=== PATIENT | male | born 1965 | race Caucasian/White ===

== ENCOUNTER 2020-06-27 15:25 | Inpatient (IN) | payer OTHER ==
[2020-06-27 16:41] VITALS: BMI 40.8
[2020-06-27] MEDS ORDERED: METHOCARBAMOL 500 MG TABLET PO PRN (17:18)
[2020-06-27] MEDS ORDERED: IBUPROFEN 400 MG TABLET (FP) PO PRN (17:18)
[2020-06-27] MEDS ORDERED: MAGNESIUM CITRATE 300 ML BOTTLE PO PRN (17:18)
[2020-06-27] MEDS ORDERED: chlordiazePOXIDE HCL 25 MG CAPSULE PO PRN (17:18)
[2020-06-27] MEDS ORDERED: BISMUTH SUBSALICYLATE 524 MG/30 ML UD PO PRN (17:18)
[2020-06-27] MEDS ORDERED: ONDANSETRON *ODT* 4 MG TABLET SL PRN (17:18)
[2020-06-27] MEDS ORDERED: ACETAMINOPHEN 325 MG TABLET (FP) PO PRN ×2 (17:18)
[2020-06-27] MEDS ORDERED: NICOTINE POLACRILEX 2 MG GUM BUC PRN (17:18)
[2020-06-27] MEDS ORDERED: MAG HYDROX/AL HYDROX/SIMETH 30 ML UNIT-DOSE CUP PO PRN (17:18)
[2020-06-27] MEDS ORDERED: MAGNESIUM HYDROX 2400MG/30ML ORAL SUSPENSION 30 ML CUP PO PRN (17:18)
[2020-06-27] MEDS ORDERED: MENTHOL/PHENOL 1 EACH UD MM PRN (17:18)
[2020-06-27] MEDS ORDERED: chlordiazePOXIDE HCL 25 MG CAPSULE PO ONE (17:18)
[2020-06-27] MEDS: THIAMINE HCL 100 MG TABLET (FP) PO SCH (22:39)
[2020-06-27] MEDS: MELATONIN 5 MG TABLETS PO PRN (22:39)
[2020-06-27] MEDS: chlordiazePOXIDE HCL 25 MG CAPSULE PO SCH (22:39)
[2020-06-28] MEDS: chlordiazePOXIDE HCL 25 MG CAPSULE PO SCH ×4 (06:38→22:24)
[2020-06-28] MEDS ORDERED: PRENATAL VITAMINS W/ FOLIC ACID TABLET (FP) PO SCH (10:00)
[2020-06-28 10:31] LABS: POTASSIUM 3.9 mmol/L (3.5-5.1)
[2020-06-28 10:40] LABS: BLOOD UREA NITROGEN 12.4 mg/dL (7-18)
[2020-06-28 10:41] LABS: CALCIUM 9.1 mg/dL (8.5-10.1)
[2020-06-28 10:45] LABS: BILIRUBIN,TOTAL 1.8 mg/dL (0.2-1); TOT PROT 7.2 g/dl (6.4-8.2)
[2020-06-28 11:31] LABS: HEMATOCRIT 44.9 % (35.4-49); HEMOGLOBIN 15.5 GM/dL (11.7-16.9); MCH 34.3 pg (25.7-33.7); MCHC 34.5 g/dl (32.0-35.9); MEAN CELL VOLUME 99.4 fl (80-96); MEAN PLT VOLUME 9.2 fl (7.5-11.1); PLATELET COUNT 95 K/MM3 (134-434); RBC 4.52 M/mm3 (4.00-5.60); RDW 14.8 % (11.9-15.9); WHITE BLOOD COUNT 4.8 K/mm3 (4.0-10.0)
[2020-06-28] MEDS: THIAMINE HCL 100 MG TABLET (FP) PO SCH (22:24)
[2020-06-28] MEDS: MELATONIN 5 MG TABLETS PO PRN (22:24)
[2020-06-29] MEDS ORDERED: chlordiazePOXIDE HCL 25 MG CAPSULE PO SCH (05:00)
[2020-06-29 10:10] VITALS: BP 125/85; PULSE 103; TEMP 97.3
[2020-06-30] MEDS ORDERED: chlordiazePOXIDE HCL 10 MG CAPSULE PO PRN
[2020-06-30] MEDS ORDERED: chlordiazePOXIDE HCL 10 MG CAPSULE PO SCH (05:00)
[2020-07-01] MEDS ORDERED: chlordiazePOXIDE HCL 10 MG CAPSULE PO SCH (05:00)
[2020-07-02] MEDS ORDERED: chlordiazePOXIDE HCL 10 MG CAPSULE PO ONE (05:00)
== END 2020-06-29 10:05 | disposition left against medical advice (07) | DRG 894 ==
LOC: YASAS 15:25 → Y6N 17:45
PROVIDERS: ADMIT Allergy & Immunology; ATTEND Allergy & Immunology
PROC: HZ2ZZZZ Detoxification Services for Substance Abuse Treatment (ICD-10-PCS; principal; 2020-06-27)
DX: F10.230 Alcohol dependence with withdrawal, uncomplicated (principal); Z68.41 Body mass index [BMI] 40.0-44.9, adult; F19.24 Other psychoactive substance dependence with psychoactive substance-induced mood disorder; F32.9 Major depressive disorder, single episode, unspecified; F41.9 Anxiety disorder, unspecified; E66.01 Morbid (severe) obesity due to excess calories; I10 Essential (primary) hypertension; R94.31 Abnormal electrocardiogram [ECG] [EKG]
CPT/HCPCS: 36415; 80053; 85027; 86780; 93005; 93010; C9803; U0003

== ENCOUNTER 2020-11-10 20:51 | Inpatient (IN) | payer BC, OTHER ==
[2020-11-10 21:00] VITALS: BMI 40.8
[2020-11-10] MEDS ORDERED: diazePAM CARPU-JECT 10 MG/2 ML DISP.SYRIN IVPUSH ONE ×3 (22:11→23:29)
[2020-11-10] MEDS ORDERED: SODIUM CHLORIDE 0.9% 500 ML INFUS.BAG IV ONE (22:12)
[2020-11-10] MEDS ORDERED: diazePAM CARPU-JECT 10 MG/2 ML DISP.SYRIN ONE ×3 (22:24→23:49)
[2020-11-10 22:33] LABS: BASO % 1.3 % (0-2.0); EOS % 1.5 % (0-4.5); HEMATOCRIT 47.5 % (35.4-49); HEMOGLOBIN 16.4 GM/dL (11.7-16.9); LYMPH % 38.3 % (8-40); MCHC 34.6 g/dl (32.0-35.9); MEAN CELL VOLUME 98.3 fl (80-96); MEAN PLT VOLUME 8.3 fl (7.5-11.1); MONO % 9.4 % (3.8-10.2); NEUT % 49.5 % (42.8-82.8); PLATELET COUNT 108 10^3/uL (134-434); RBC 4.83 M/mm3 (4.00-5.60); RDW 14.8 % (11.9-15.9); WHITE BLOOD COUNT 5.2 K/mm3 (4.0-10.0)
[2020-11-10 22:37] LABS: INR 0.88 (0.83-1.09); PROTHROMBIN TIME (PATIENT) 10.7 SEC (9.7-13.0)
[2020-11-10 22:39] LABS: ACTIVATED PTT 33.6 SECONDS (25.2-36.5)
[2020-11-10 22:50] LABS: CHLORIDE 107 mmol/L (98-107); SODIUM 141 mmol/L (136-145)
[2020-11-10 22:54] LABS: CALCIUM 9.5 mg/dL (8.5-10.1)
[2020-11-10 22:55] LABS: ALBUMIN 4.2 g/dl (3.4-5.0); ANION GAP 11 MMOL/L (8-16); BLOOD UREA NITROGEN 10.4 mg/dL (7-18); CO2 22 mmol/L (21-32); GLUCOSE,RANDOM 140 mg/dL (74-106)
[2020-11-10 22:58] LABS: CREATININE 0.7 mg/dL (0.55-1.3); SGOT/AST 84 U/L (15-37); SGPT/ALT 77 U/L (13-61)
[2020-11-10 23:00] LABS: ALK PHOS 65 U/L (45-117); BILIRUBIN,TOTAL 0.5 mg/dL (0.2-1); TOT PROT 7.7 g/dl (6.4-8.2)
[2020-11-10] MEDS ORDERED: dilTIAZem HCL 50 MG/10 ML - 10 ML VIAL IVPUSH ONE (23:05)
[2020-11-10] MEDS ORDERED: dilTIAZem HCL 125 MG/25 ML - 25 ML VIAL ONE (23:09)
[2020-11-10] MEDS ORDERED: dilTIAZem HCL 60 MG TABLET ONE (23:34)
[2020-11-11] MEDS ORDERED: diazePAM CARPU-JECT 10 MG/2 ML DISP.SYRIN IVPUSH ONE (02:01)
[2020-11-11] MEDS ORDERED: dilTIAZem HCL 50 MG/10 ML - 10 ML VIAL IVPUSH ONE (02:01)
[2020-11-11] MEDS ORDERED: dilTIAZem HCL 125 MG/25 ML - 25 ML VIAL ONE (02:04)
[2020-11-11] MEDS ORDERED: diazePAM CARPU-JECT 10 MG/2 ML DISP.SYRIN ONE (02:04)
[2020-11-11 03:09] LABS: URINE AMPHETAMINES NEGATIVE (NEGATIVE); URINE BARBITURATES NEGATIVE (NEGATIVE)
[2020-11-11 03:10] LABS: COCAINE, UR NEGATIVE (NEGATIVE); METHADONE, UR NEGATIVE (NEGATIVE); OPIATES, URI NEGATIVE (NEGATIVE); PHENCYCLIDINE,URINE NEGATIVE (NEGATIVE); URINE BENZODIAZEPINES NEGATIVE (NEGATIVE)
[2020-11-11] MEDS ORDERED: chlordiazePOXIDE HCL 10 MG CAPSULE ONE (03:19)
[2020-11-11] MEDS ORDERED: chlordiazePOXIDE HCL 25 MG CAPSULE PO ONE (03:19)
[2020-11-11] MEDS ORDERED: FOLIC ACID INJECTION - 1 MG, THIAMINE HCL 100 MG, MULTIVIT INJECTION ADULT 10 ML in SOD... IVPB ONE (03:27)
[2020-11-11] MEDS ORDERED: LORazepam 1 MG TABLET PO PRN (03:37)
[2020-11-11 03:46] LABS: BASO % 0.9 % (0-2.0); EOS % 1.2 % (0-4.5); HEMATOCRIT 46.1 % (35.4-49); HEMOGLOBIN 16.2 GM/dL (11.7-16.9); LYMPH % 28.8 % (8-40); MCH 34.1 pg (25.7-33.7); MCHC 35.2 g/dl (32.0-35.9); MEAN CELL VOLUME 96.9 fl (80-96); MEAN PLT VOLUME 8.3 fl (7.5-11.1); MONO % 8.3 % (3.8-10.2); NEUT % 60.8 % (42.8-82.8); PLATELET COUNT 105 10^3/uL (134-434); RBC 4.76 M/mm3 (4.00-5.60); RDW 15.1 % (11.9-15.9); WHITE BLOOD COUNT 6.1 K/mm3 (4.0-10.0)
[2020-11-11 04:07] LABS: ALBUMIN 4.1 g/dl (3.4-5.0); BLOOD UREA NITROGEN 9.9 mg/dL (7-18); CALCIUM 9.3 mg/dL (8.5-10.1); MAGNESIUM 1.8 mg/dL (1.8-2.4)
[2020-11-11 04:11] LABS: CREATININE 0.7 mg/dL (0.55-1.3)
[2020-11-11 04:12] LABS: PHOSPHOROUS 3.2 mg/dL (2.5-4.9)
[2020-11-11 04:13] LABS: BILIRUBIN,TOTAL 0.7 mg/dL (0.2-1); TOT PROT 7.4 g/dl (6.4-8.2)
[2020-11-11 04:52] LABS: PH,URINE 6.5 (5.0-8.0); URINE APPEARANCE Clear; URINE BILIRUBIN Negative (NEGATIVE); URINE COLOR Yellow; URINE GLUCOSE (UA) Negative (NEGATIVE); URINE KETONE Negative (NEGATIVE); URINE LEUK ESTERASE Negative (NEGATIVE); URINE NITRITE Negative (NEGATIVE); URINE PROTEIN 2+ (NEGATIVE); URINE UROBILINOGEN 0.2 mg/dL (0.2-1.0)
[2020-11-11] MEDS ORDERED: LORazepam 1 MG TABLET ONE ×3 (05:04→11:20)
[2020-11-11] MEDS: LORazepam 2 MG TABLET PO SCH ×3 (05:07→17:24)
[2020-11-11 05:26] LABS: EPI CELLS MODERATE /uL (0-25.1); URINE WBC 75-100 /uL (0-25.8)
[2020-11-11 05:27] LABS: YEAST 2+ (NEGATIVE)
[2020-11-11] MEDS ORDERED: dilTIAZem HCL 30 MG TABLET ONE (06:16)
[2020-11-11] MEDS: dilTIAZem HCL 30 MG TABLET PO SCH ×3 (06:18→17:20)
[2020-11-11 07:09] LABS: HIV INTERPRETATION NEGATIVE (NEGATIVE)
[2020-11-11 08:00] LABS: N-TERMINAL BNP 137.5 pg/ml (5-125)
[2020-11-11] MEDS ORDERED: ENOXAPARIN NA (PORCINE) 40 MG/0.4 ML DISP.SYRIN SQ SCH (10:00)
[2020-11-11] MEDS ORDERED: FOLIC ACID 1 MG TABLET (FP) ONE (10:21)
[2020-11-11] MEDS ORDERED: THIAMINE HCL 100 MG TABLET (FP) ONE (10:21)
[2020-11-11] MEDS ORDERED: MULTIVITAMINS (DAILY MVI) TABLET (FP) ONE (10:21)
[2020-11-11] MEDS ORDERED: PANTOPRAZOLE 40 MG TABLET ONE (10:21)
[2020-11-11] MEDS ORDERED: ENOXAPARIN NA (PORCINE) 40 MG/0.4 ML DISP.SYRIN SQ ONE ×2 (10:22→20:14)
[2020-11-11] MEDS: FOLIC ACID 1 MG TABLET (FP) PO SCH (10:30)
[2020-11-11] MEDS: MULTIVITAMINS (DAILY MVI) TABLET (FP) PO SCH (10:31)
[2020-11-11] MEDS: THIAMINE HCL 100 MG TABLET (FP) PO SCH (10:31)
[2020-11-11] MEDS: PANTOPRAZOLE 40 MG TABLET PO SCH (10:31)
[2020-11-11] MEDS ORDERED: ENOXAPARIN NA (PORCINE) 100 MG/1 ML DISP.SYRIN SQ ONE ×2 (13:00→20:14)
[2020-11-11] MEDS ORDERED: LORazepam 1 MG TABLET PO SCH (17:11)
[2020-11-11] MEDS: LORazepam 1 MG TABLET PO SCH ×2 (17:20→22:02)
[2020-11-11] MEDS: ENOXAPARIN 100 MG, ENOXAPARIN 40 MG SQ SCH (21:15)
[2020-11-11] MEDS ORDERED: ENOXAPARIN NA (PORCINE) 120 MG/0.8 ML DISP.SYRIN SQ SCH (22:00)
[2020-11-12] MEDS: dilTIAZem HCL 30 MG TABLET PO SCH ×3 (05:17→11:19)
[2020-11-12] MEDS: LORazepam 1 MG TABLET PO SCH ×2 (05:18→11:16)
[2020-11-12 07:16] LABS: HEMATOCRIT 44.1 % (35.4-49); HEMOGLOBIN 15.5 GM/dL (11.7-16.9); MCH 34.3 pg (25.7-33.7); MCHC 35.1 g/dl (32.0-35.9); MEAN CELL VOLUME 97.8 fl (80-96); MEAN PLT VOLUME 8.8 fl (7.5-11.1); PLATELET COUNT 84 10^3/uL (134-434); RBC 4.51 M/mm3 (4.00-5.60)
[2020-11-12 07:45] LABS: CALCIUM 8.6 mg/dL (8.5-10.1); MAGNESIUM 1.8 mg/dL (1.8-2.4)
[2020-11-12 07:47] LABS: ALBUMIN 3.8 g/dl (3.4-5.0)
[2020-11-12 07:48] LABS: BLOOD UREA NITROGEN 13.7 mg/dL (7-18)
[2020-11-12 07:50] LABS: TOT PROT 6.8 g/dl (6.4-8.2)
[2020-11-12 07:51] LABS: CREATININE 0.7 mg/dL (0.55-1.3); PHOSPHOROUS 2.7 mg/dL (2.5-4.9)
[2020-11-12] MEDS ORDERED: ENOXAPARIN NA (PORCINE) 40 MG/0.4 ML DISP.SYRIN SQ ONE (08:50)
[2020-11-12] MEDS ORDERED: ENOXAPARIN NA (PORCINE) 100 MG/1 ML DISP.SYRIN SQ ONE (08:50)
[2020-11-12] MEDS: PANTOPRAZOLE 40 MG TABLET PO SCH (09:01)
[2020-11-12] MEDS: FOLIC ACID 1 MG TABLET (FP) PO SCH (09:01)
[2020-11-12] MEDS: ENOXAPARIN 100 MG, ENOXAPARIN 40 MG SQ SCH (09:01)
[2020-11-12] MEDS: MULTIVITAMINS (DAILY MVI) TABLET (FP) PO SCH (09:02)
[2020-11-12] MEDS: THIAMINE HCL 100 MG TABLET (FP) PO SCH (09:02)
[2020-11-12 14:33] VITALS: BP 143/97; PULSE 119; TEMP 98.1
[2020-11-12 17:09] LABS: HEP B CORE AB, TOT Negative (Negative)
[2020-11-13] MEDS ORDERED: LORazepam 0.5 MG TABLET PO PRN
[2020-11-13] MEDS ORDERED: LORazepam 0.5 MG TABLET PO SCH (05:00)
[2020-11-14] MEDS ORDERED: LORazepam 0.5 MG TABLET PO ONE (05:00)
== END 2020-11-12 18:49 | disposition home or self-care (01) | DRG 897 ==
LOC: JER 20:51 → JERBED 11-11 03:15 → J4W 11-11 12:06
PROVIDERS: ADMIT Internal Medicine; ATTEND Student in an Organized Health Care Education/Training Program
PROC: HZ2ZZZZ Detoxification Services for Substance Abuse Treatment (ICD-10-PCS; principal; 2020-11-11)
DX: F10.220 Alcohol dependence with intoxication, uncomplicated (principal); Z68.41 Body mass index [BMI] 40.0-44.9, adult; I48.91 Unspecified atrial fibrillation; E66.01 Morbid (severe) obesity due to excess calories; R74.01 Elevation of levels of liver transaminase levels; R07.9 Chest pain, unspecified; K70.10 Alcoholic hepatitis without ascites; R31.9 Hematuria, unspecified; E78.5 Hyperlipidemia, unspecified
CPT/HCPCS: 36415; 71045-TC-FY; 76700-TC; 80053; 80061; 80307; 81003; 82550; 82553; 82746; 83036; 83721; 83735; 83880; 84100; 84153; 84443; 84484; 85025; 85027; 85610; 85730; 86704; 86706; 86707; 86708; 86709; 87340; 87389; 87522; 93005; 93010; 93306-TC; 99291; C9803; U0003; U0005